=== PATIENT | female | born 2000 | race Caucasian/White ===

== ENCOUNTER 2021-01-23 10:17 | Emergency (ER) | payer MEDICAID ==
[~2021-01-23] VITALS: Ht 157.5 cm; Wt 64.0 kg
[2021-01-23] MEDS ORDERED: KETOROLAC 60MG/2ML VIAL IM ONE (11:00)
[2021-01-23 11:18] LABS: BASOPHILS % 0.6 % (0.0-2.0); EOSINOPHILS % 2.8 % (0.0-5.0); HEMATOCRIT. 38.4 % (36.0-48.0); LYMPHOCYTES % 17.9 % (20.0-50.0); MEAN CORPUSCULAR HEMOGLOBIN 27.8 pg (28.0-32.0); MEAN CORPUSCULAR VOLUME 82.4 fL (81.0-99.0); MEAN PLATELET VOLUME 8.8 fl (7.4-10.4); MONOCYTES % 5.4 % (2.0-8.0); NEUTROPHILS % 73.3 % (40.0-76.0); PLATELET 365 x1000/uL (130-400); RED BLOOD CELL COUNT 4.66 mill/uL (4.2-5.4); RED CELL DISTRIBUTION WIDTH 14.3 % (11.6-14.6)
[2021-01-23 11:24] LABS: CHLORIDE 106 mEq/L (98-107)
[2021-01-23 11:26] LABS: CLARITY URINE CLOUDY (CLEAR); COLOR URINE YELLOW (YELLOW); KETONES URINE NEGATIVE (NEGATIVE); LEUKOCYTE ESTERASE URINE 2+ (NEGATIVE); NITRITE URINE NEGATIVE (NEGATIVE); OCCULT BLOOD URINE NEGATIVE (NEGATIVE); PH URINE 6.5 (4.5-8.0); PROTEIN URINE NEGATIVE (NEGATIVE); SPECIFIC GRAVITY URINE 1.013 (1.005-1.030); UROBILINOGEN URINE 0.2 E.U./dL (0.2-1.0)
[2021-01-23] MEDS ORDERED: PHEN-909 MT (12:17)
[2021-01-23] MEDS ORDERED: CEPH250C2 MT (12:18)
[2021-01-23 12:37] VITALS: BP 118/74
== END 2021-01-23 12:38 | disposition home or self-care (01) ==
LOC: ER 10:17
DX: N39.0 Urinary tract infection, site not specified (principal); Z98.890 Other specified postprocedural states
CPT/HCPCS: 36415; 80053; 81003; 81025; 85025; 87077; 87086; 87186; 96372; 99283; J1885

== ENCOUNTER 2022-02-03 15:33 | Emergency (ER) | payer MEDICAID ==
[~2022-02-03] VITALS: Ht 152.4 cm; Wt 59.0 kg
[~2022-02-03 15:33] MED LIST: CEPH250C2 MT; PHEN-909 MT
[2022-02-03 15:49] VITALS: BP 128/78
== END 2022-02-03 22:33 | disposition left against medical advice (07) ==
LOC: ER 15:33
DX: Z53.21 Procedure and treatment not carried out due to patient leaving prior to being seen by health care provider (principal)